=== PATIENT | female | born 1955 | race Caucasian/White ===

== ENCOUNTER → 2016-11-19 | Outpatient (CLI) | payer OTHER ==
[~2016-11-19] MED LIST: ESTR1.5T4 PO
== END | disposition home or self-care (01) ==
LOC: STAR 08:21
PROVIDERS: ATTEND Orthopaedic Surgery
DX: Z01.818 Encounter for other preprocedural examination (principal); S83.242A Other tear of medial meniscus, current injury, left knee, initial encounter; M19.041 Primary osteoarthritis, right hand; M17.12 Unilateral primary osteoarthritis, left knee; X58.XXXA Exposure to other specified factors, initial encounter; Y93.89 Activity, other specified; Y92.89 Other specified places as the place of occurrence of the external cause; Y99.2 Volunteer activity
CPT/HCPCS: 93005

== ENCOUNTER 2016-11-26 05:11 | Day surgery (SDC) | payer OTHER ==
[2016-11-19 08:41] VITALS: BP 133/92
[~2016-11-26] VITALS: Ht 165.1 cm; Wt 61.0 kg
[2016-11-26] MEDS ORDERED: LACTATED RINGERS 1,000 ML IV SCH (05:46)
[2016-11-26] MEDS ORDERED: LIDOCAINE 1%, 2ML SQ PRN (06:00)
[2016-11-26] MEDS ORDERED: LIDOCAINE 1%-EPI 1:100K, 50ML ONE (06:21)
[2016-11-26] MEDS ORDERED: ROPIvacaine/PF 0.5%, 30 ML ONE (06:21)
[2016-11-26] MEDS ORDERED: LIDOCAINE/PF 1%-EPI 1:200K, 30ML ONE (06:29)
[2016-11-26] MEDS ORDERED: MIDAZOLAM 1 MG/ML, 2ML ONE ×2 (06:41→10:33)
[2016-11-26] MEDS ORDERED: FENTANYL PF 250 MCG/5ML ONE ×2 (06:41→10:33)
[2016-11-26] MEDS ORDERED: KETAMINE 10 MG/ML, 20ML ONE (07:15)
[2016-11-26] MEDS ORDERED: FENTANYL PF 100 MCG/2ML IV PRN (07:30)
[2016-11-26] MEDS ORDERED: PROMETHAZINE 25 MG/ML, 1ML IV PRN (07:30)
[2016-11-26] MEDS ORDERED: ONDANSETRON 2MG/ML, 2ML IVPush PRN (07:30)
[2016-11-26] MEDS ORDERED: hydrALAzine 20 MG/ML, 1ML IV PRN (07:30)
[2016-11-26] MEDS ORDERED: HYDROmorphone 1 MG/ML, 1ML IV PRN (07:30)
[2016-11-26] MEDS ORDERED: HALOPERIDOL 5 MG/ML IV PRN (07:30)
[2016-11-26] MEDS ORDERED: OXYcodone 5 MG/5 ML ORAL.SOL UDC PO PRN (07:30)
[2016-11-26] MEDS ORDERED: ACETAMINOPHEN 325 MG TABLET PO PRN (07:30)
[2016-11-26] MEDS ORDERED: LABETALOL 5MG/ML, 20ML IV PRN (07:30)
[2016-11-26] MEDS ORDERED: MEPERIDINE/PF 25MG/0.5ML IVPush PRN (07:30)
[2016-11-26] MEDS ORDERED: CEFAZOLIN 1,000 MG ONE (15:28)
[2016-11-26] MEDS ORDERED: KETOROLAC 30 MG/1 ML ONE (15:28)
[2016-11-26] MEDS ORDERED: DEXAMETHASONE 4 MG/ML, 1ML ONE (15:28)
[2016-11-26] MEDS ORDERED: EPHEDRINE 50 MG/ML, 1ML ONE (15:28)
[2016-11-26] MEDS ORDERED: PROPOFOL 10 MG/ML, 20ML ONE (15:28)
[2016-11-26] MEDS ORDERED: ONDANSETRON 2MG/ML, 2ML ONE (15:28)
== END 2016-11-26 09:25 ==
LOC: OUT 05:11
PROVIDERS: ATTEND Orthopaedic Surgery
DX: S83.242A Other tear of medial meniscus, current injury, left knee, initial encounter (principal); S83.282A Other tear of lateral meniscus, current injury, left knee, initial encounter; X58.XXXA Exposure to other specified factors, initial encounter; Y93.9 Activity, unspecified; Y92.9 Unspecified place or not applicable; Y99.9 Unspecified external cause status; M65.862 Other synovitis and tenosynovitis, left lower leg
CPT/HCPCS: 29880; J0690; J1100; J1885; J2250; J2405; J2704; J2795; J3010; J3490; J7120

== ENCOUNTER → 2017-02-14 | Outpatient (CLI) | payer OTHER | END | disposition home or self-care (01) | LOC: CFH 11:42 | PROVIDERS: ATTEND Orthopaedic Surgery | DX: S83.242A Other tear of medial meniscus, current injury, left knee, initial encounter (principal); M71.22 Synovial cyst of popliteal space [Baker], left knee; X58.XXXA Exposure to other specified factors, initial encounter; Y93.89 Activity, other specified; Y92.89 Other specified places as the place of occurrence of the external cause; Y99.8 Other external cause status ==

== ENCOUNTER → 2017-02-18 | Outpatient (CLI) | payer OTHER | END | disposition home or self-care (01) | LOC: LAB 08:46 | PROVIDERS: ATTEND Internal Medicine | DX: E03.9 Hypothyroidism, unspecified (principal) | CPT/HCPCS: 36415; 84439; 84443; 86376 ==

== ENCOUNTER → 2017-02-21 | Outpatient (CLI) | payer OTHER | END | disposition home or self-care (01) | LOC: RAD 15:20 | PROVIDERS: ATTEND Orthopaedic Surgery | DX: M17.12 Unilateral primary osteoarthritis, left knee (principal); M71.22 Synovial cyst of popliteal space [Baker], left knee; M25.462 Effusion, left knee ==

== ENCOUNTER → 2017-06-17 | Outpatient (CLI) | payer OTHER ==
[2017-06-17 08:25] LABS: HEMATOCRIT 44.3 % (34.6-47.8); HEMOGLOBIN 15.1 g/dL (11.7-16.4); WHITE BLOOD COUNT 4.4 x10^3/uL (3.4-10)
[2017-06-17 08:37] LABS: BLOOD UREA NITROGEN 18 mg/dL (7-18)
[2017-06-17 08:47] LABS: ASPARTATE AMINO TRANSFERASE 17 U/L (15-37)
== END ==
LOC: LAB 08:07
PROVIDERS: ATTEND Family Medicine
DX: Z00.01 Encounter for general adult medical examination with abnormal findings (principal); E78.5 Hyperlipidemia, unspecified; E89.41 Symptomatic postprocedural ovarian failure
CPT/HCPCS: 36415; 80053; 80061; 82306; 84436; 84443; 84480; 84481; 85025

== ENCOUNTER → 2017-09-04 | Outpatient (CLI) | payer OTHER | END | disposition home or self-care (01) | LOC: CFH 07:44 | PROVIDERS: ATTEND Family Medicine | DX: Z12.31 Encounter for screening mammogram for malignant neoplasm of breast (principal); Z80.3 Family history of malignant neoplasm of breast; Z79.890 Hormone replacement therapy | CPT/HCPCS: 77063; 77067 ==

== ENCOUNTER → 2017-10-01 | Outpatient (CLI) | payer OTHER | LOC: CFH 06:39 | PROVIDERS: ATTEND Orthopaedic Surgery | DX: S82.142D Displaced bicondylar fracture of left tibia, subsequent encounter for closed fracture with routine healing (principal); M17.12 Unilateral primary osteoarthritis, left knee; M25.462 Effusion, left knee; M22.42 Chondromalacia patellae, left knee; X58.XXXD Exposure to other specified factors, subsequent encounter ==

== ENCOUNTER → 2017-10-21 | Outpatient (CLI) | payer OTHER | END | disposition home or self-care (01) | LOC: CFH 08:01 | PROVIDERS: ATTEND Family Medicine | DX: Z13.820 Encounter for screening for osteoporosis (principal); M85.88 Other specified disorders of bone density and structure, other site | CPT/HCPCS: 77080 ==

== ENCOUNTER → 2017-11-17 | Outpatient (CLI) | payer OTHER ==
[~2017-11-17] MED LIST changes: +CALC1TAB PO; +MV,1TABL3 PO; +estrogen PO
[2017-11-17 10:54] LABS: BASOPHILS # (AUTO) 0.07 x10^3/uL (0-0.1); BASOPHILS % (AUTO) 2 % (0-1); EOSINOPHILS # (AUTO) 0.13 x10^3/uL (0-0.4); EOSINOPHILS % (AUTO) 3 % (1-7); LYMPHOCYTES # (AUTO) 1.74 x10^3/uL (1-3.4); LYMPHOCYTES % (AUTO) 35 % (22-44); MD NO; MEAN CORPUSCULAR HEMOGLOBIN 31.3 pg (27.0-34.8); MEAN CORPUSCULAR HGB CONC 34.2 g/dL (32.4-35.8); MEAN CORPUSCULAR VOLUME 91.6 fL (80-100); MEAN PLATELET VOLUME 8.4 fL (7.4-10.4); MONOCYTES # (AUTO) 0.47 x10^3/uL (0.2-0.8); MONOCYTES % (AUTO) 9 % (2-9); NEUTROPHILS # (AUTO) 2.62 x10^3/uL (1.8-6.8); NEUTROPHILS % (AUTO) 52 % (42-75); PLATELET COUNT 284 x10^3/uL (130-400); RED BLOOD COUNT 4.84 x10^6/uL (3.82-5.3); RED CELL DISTRIBUTION WIDTH 14.4 % (9.6-15.2)
[2017-11-17 11:02] LABS: ANION GAP 4 mmol/L (5-15); CALCIUM 9.7 mg/dL (8.5-10.1); CHLORIDE 107 mmol/L (98-107); CREATININE 0.97 mg/dL (0.55-1.02)
[2017-11-17 11:06] LABS: MICROSCOPIC NOT IND
[2017-11-17 11:08] LABS: CULTURE INDICATED? NO
== END | disposition home or self-care (01) ==
LOC: STAR 09:20
PROVIDERS: ATTEND Orthopaedic Surgery Adult Reconstructive Orthopaedic Surgery
DX: Z01.818 Encounter for other preprocedural examination (principal); I21.9 Acute myocardial infarction, unspecified; M17.12 Unilateral primary osteoarthritis, left knee
CPT/HCPCS: 36415; 80048; 81003; 85025; 87081; 87147; 87806; 93005; G0475

== ENCOUNTER 2017-12-15 05:31 | Observation (INO) | payer OTHER ==
[~2017-12-15] VITALS: Ht 165.1 cm; Wt 62.0 kg
[2017-12-15] MEDS ORDERED: VANCOMYCIN PER PHARMACY MC ONE (06:11)
[2017-12-15] MEDS ORDERED: ACETAMINOPHEN 500 MG TABLET PO ONE (06:30)
[2017-12-15] MEDS ORDERED: VANCOMYCIN 1,200 MG in SODIUM CHLORIDE 0.9% 250 ML IV ONE (06:30)
[2017-12-15] MEDS ORDERED: GABAPENTIN 300 MG CAPSULE PO ONE (06:30)
[2017-12-15] MEDS ORDERED: KETOROLAC 60 MG/2 ML ONE (06:31)
[2017-12-15] MEDS ORDERED: TRANEXAMIC ACID 100 MG/ML, 10ML ONE ×2 (06:31)
[2017-12-15] MEDS ORDERED: ROPIvacaine/PF 0.2%, 20 ML ONE (06:31)
[2017-12-15] MEDS ORDERED: EPINEPHRINE 1 MG/ML, 1ML ONE (06:31)
[2017-12-15] MEDS: LACTATED RINGERS 1,000 ML IV SCH ×3 (06:36→10:46)
[2017-12-15] MEDS ORDERED: BUPIVACAINE LIPOSOME/PF INFIL ONE (06:37)
[2017-12-15] MEDS ORDERED: MIDAZOLAM 1 MG/ML, 2ML ONE (06:42)
[2017-12-15] MEDS ORDERED: PHENYLEPHRINE 10 MG/ML ONE (06:42)
[2017-12-15] MEDS ORDERED: FENTANYL PF 250 MCG/5ML ONE (06:42)
[2017-12-15] MEDS ORDERED: OxyconTIN ER 10 MG TAB.ER ONE (06:45)
[2017-12-15] MEDS ORDERED: OxyconTIN ER 10 MG TAB.ER PO ONE (07:00)
[2017-12-15] MEDS ORDERED: PROPOFOL 50 ML ONE (07:09)
[2017-12-15] MEDS ORDERED: OXYcodone 5 MG/5 ML ORAL.SOL UDC PO PRN (07:30)
[2017-12-15] MEDS ORDERED: PROMETHAZINE 25 MG SUPP PR PRN (07:30)
[2017-12-15] MEDS ORDERED: MEPERIDINE/PF 25MG/0.5ML IVPush PRN (07:30)
[2017-12-15] MEDS ORDERED: LABETALOL 5MG/ML, 20ML IV PRN (07:30)
[2017-12-15] MEDS ORDERED: PROMETHAZINE 12.5 MG SUPP PR PRN (07:30)
[2017-12-15] MEDS ORDERED: MORPHINE SULFATE 4 MG/ML, 1ML IVPush PRN (07:30)
[2017-12-15] MEDS ORDERED: ONDANSETRON ODT 8 MG PO PRN (07:30)
[2017-12-15] MEDS ORDERED: PROMETHAZINE 25 MG/ML, 1ML IV PRN (07:30)
[2017-12-15] MEDS ORDERED: OXYcodone IR 5MG TABLET PO PRN (08:30)
[2017-12-15] MEDS ORDERED: ACETAMINOPHEN 650 MG/20.3 ML UDC PO PRN (08:30)
[2017-12-15] MEDS ORDERED: ALUMINUM/MAG/SIMETHICONE 30 ML UDC PO PRN (08:30)
[2017-12-15] MEDS ORDERED: SENNA/DOCUSATE TABLET PO PRN (08:30)
[2017-12-15] MEDS ORDERED: MAGNESIUM HYDROXIDE 8%, 30ML UDC PO PRN (08:30)
[2017-12-15] MEDS ORDERED: DIPHENHYDRAMINE 50 MG CAPSULE PO PRN (08:30)
[2017-12-15] MEDS ORDERED: DIAZEPAM 5 MG TABLET PO PRN (08:30)
[2017-12-15] MEDS ORDERED: ONDANSETRON 4 MG TABLET PO PRN (08:30)
[2017-12-15] MEDS ORDERED: HYDROcodone/APAP 5/325 TABLET PO PRN (08:30)
[2017-12-15] MEDS ORDERED: morphine SULFATE 10 MG/ML, 1ML IV PRN (08:30)
[2017-12-15] MEDS ORDERED: BISACODYL 10 MG SUPP PR PRN (08:30)
[2017-12-15] MEDS ORDERED: OXYcodone 5 MG/5 ML ORAL.SOL UDC ONE (08:47)
[2017-12-15] MEDS ORDERED: FENTANYL PF 100 MCG/2ML ONE (08:47)
[2017-12-15] MEDS: FENTANYL PF 100 MCG/2ML IV PRN ×4 (08:49→09:24)
[2017-12-15] MEDS ORDERED: LABETALOL 5MG/ML, 20ML ONE (08:55)
[2017-12-15] MEDS: DOCUSATE 100 MG CAPSULE PO SCH (09:00)
[2017-12-15] MEDS: ESTROGEN HOMEMEDPO SCH (09:00)
[2017-12-15] MEDS ORDERED: hydrALAzine 20 MG/ML, 1ML ONE (09:10)
[2017-12-15] MEDS ORDERED: TRANEXAMIC ACID 1,000 MG in SODIUM CHLORIDE 0.9% 100 ML IV ONE (09:30)
[2017-12-15] MEDS ORDERED: hydrALAzine 20 MG/ML, 1ML IV PRN (09:30)
[2017-12-15 10:15] VITALS: BP 145/86
[2017-12-15] MEDS ORDERED: D5%-0.45NACL+KCL 20MEQ 1,000 ML IV SCH (11:00)
[2017-12-15] MEDS ORDERED: ASPI-621 PO (11:33)
[2017-12-15] MEDS ORDERED: OXYC5CAP2 PO (11:33)
[2017-12-15] MEDS ORDERED: CEFAZOLIN PMX 1GM/50ML 50 ML IVPB SCH (13:00)
[2017-12-15 13:07] VITALS: BP 109/70
[2017-12-16] MEDS ORDERED: ASPIRIN 81 MG TABLET EC PO SCH (06:00)
[2017-12-16] MEDS ORDERED: KETOROLAC 30 MG/1 ML IV SCH (08:30)
[2017-12-16] MEDS ORDERED: MULTIVITAMINS/MINERALS TABLET PO SCH (09:00)
[2017-12-16] MEDS ORDERED: CALCIUM/VITAMIN D3 250-125 TABLET PO SCH (09:00)
== END 2017-12-15 17:53 | disposition home or self-care (01) ==
LOC: OUT 05:31 → EDSTATUS 07:00 → ORIP 08:21 → 4NOR 10:14
PROVIDERS: ADMIT Orthopaedic Surgery Adult Reconstructive Orthopaedic Surgery; ATTEND Orthopaedic Surgery Adult Reconstructive Orthopaedic Surgery
DX: M17.12 Unilateral primary osteoarthritis, left knee (principal)
CPT/HCPCS: 27437; 96365; 97162; C1713; C1776; C9290; G0378; G8978; G8979; G8980; J0171; J0360; J0690; J1885; J2250; J2370; J2704; J2795; J3010; J3370; J7050; J7120; Q0162

== ENCOUNTER → 2018-02-17 | Outpatient (CLI) | payer OTHER ==
[~2018-02-17] MED LIST changes: +ASPI-621 PO; +OXYC5CAP2 PO
== END | disposition home or self-care (01) ==
LOC: CFH 09:18
PROVIDERS: ATTEND Nurse Practitioner
DX: M71.21 Synovial cyst of popliteal space [Baker], right knee (principal); M79.89 Other specified soft tissue disorders

== ENCOUNTER → 2018-04-02 | Outpatient (CLI) | payer OTHER | END | disposition home or self-care (01) | LOC: RAD 11:10 | PROVIDERS: ATTEND Physician Assistant Surgical | DX: S83.241A Other tear of medial meniscus, current injury, right knee, initial encounter (principal); M17.11 Unilateral primary osteoarthritis, right knee; M67.461 Ganglion, right knee; X58.XXXA Exposure to other specified factors, initial encounter; Y93.89 Activity, other specified; Y92.89 Other specified places as the place of occurrence of the external cause; Y99.8 Other external cause status ==

== ENCOUNTER → 2018-06-11 | Outpatient (CLI) | payer OTHER | END | disposition home or self-care (01) | LOC: LAB 11:04 | PROVIDERS: ATTEND Family Medicine | DX: Z12.11 Encounter for screening for malignant neoplasm of colon (principal) | CPT/HCPCS: 82274 ==

== ENCOUNTER 2018-12-21 07:27 | Emergency (ER) | payer OTHER ==
[~2018-12-21] VITALS: Ht 165.1 cm; Wt 65.0 kg
[~2018-12-21 07:27] MED LIST changes: -ASPI-621 PO; +ASPI81TA45 PO
--- NOTE | 2018-12-21 07:36 | NUR ---
63 Y/O FEMALE BIB AMBULANCE WITH C/O N/V/. PER PT "I GOT VERY VERY DIAPHORETIC ABOUT 0600. I HAD SOME SEVERE PAIN IN THE BACK OF MY NECK AND HEAD. I FELT LIKE I WAS GOING TO PASS OUT. I THREW UP RIGHT BEFORE THE MEDICS WERE THERE. IT WAS YELLOW." NO C/O DIARRHEA, CP, SOB. BEDSIDE. PT PLACED ON CONT PULSE OX,NIBP, [facility] [employer] MAGISTRATE.
--- NOTE | 2018-12-21 07:50 | NUR ---
PT DENIES NAM AT THIS TIME. PIV ESTABLISHED REPORT PROGRAMMER.
--- NOTE | 2018-12-21 07:51 | NUR ---
[facility] ADMINISTERED PRIOR TO ARRIVAL. FSBS 132. PER PT "I WENT TO ON FRIDAY FOR A TOOTH ABSCESS. THEY STARTED ME ON AUGMENTIN."
[2018-12-21] MEDS ORDERED: METOCLOPRAMIDE 5 MG/ML, 2ML IVPush ONE (08:00)
[2018-12-21] MEDS ORDERED: SODIUM CHLORIDE FLUSH 10ML SYR IVF ONE (08:00)
[2018-12-21] MEDS ORDERED: METOCLOPRAMIDE 5 MG/ML, 2ML ONE (08:03)
[2018-12-21] MEDS ORDERED: MECLIZINE CHEWABLE 25 MG TAB ONE (08:21)
[2018-12-21] MEDS ORDERED: MECLIZINE CHEWABLE 25 MG TAB PO ONE (08:30)
[2018-12-21 08:31] LABS: BASOPHILS # (AUTO) 0.05 x10^3/uL (0-0.1); BASOPHILS % (AUTO) 1 % (0-1); EOSINOPHILS # (AUTO) 0.08 x10^3/uL (0-0.4); EOSINOPHILS % (AUTO) 1 % (1-7); LYMPHOCYTES # (AUTO) 1.13 x10^3/uL (1-3.4); LYMPHOCYTES % (AUTO) 15 % (22-44); MD NO; MEAN CORPUSCULAR HEMOGLOBIN 30.9 pg (27.0-34.8); MEAN CORPUSCULAR HGB CONC 33.3 g/dL (32.4-35.8); MEAN CORPUSCULAR VOLUME 92.6 fL (80-100); MEAN PLATELET VOLUME 7.9 fL (7.4-10.4); MONOCYTES # (AUTO) 0.31 x10^3/uL (0.2-0.8); MONOCYTES % (AUTO) 4 % (2-9); NEUTROPHILS # (AUTO) 5.98 x10^3/uL (1.8-6.8); NEUTROPHILS % (AUTO) 79 % (42-75); PLATELET COUNT 237 x10^3/uL (130-400); RED CELL DISTRIBUTION WIDTH 14.4 % (9.6-15.2)
[2018-12-21 08:32] LABS: ALBUMIN 4.1 g/dL (3.4-5.0); ANION GAP 9 mmol/L (5-15); CHLORIDE 107 mmol/L (98-107); CREATININE 0.95 mg/dL (0.55-1.02)
[2018-12-21 08:36] LABS: TROPONIN I < 0.015 ng/mL (0.000-0.045)
--- NOTE | 2018-12-21 08:50 | NUR ---
LATE ENTRY FOR 0840: PT AMBULATORY WITH STEADY GAIT TO BATHROOM. THIS RN NEXT TO PT DURING AMBULATION TO AND FROM ROOM. NO ACUTE DISTRESS NOTED.
--- NOTE | 2018-12-21 08:51 | NUR ---
PT BACK FROM IMAGING.
--- NOTE | 2018-12-21 08:53 | NUR ---
pt reattached to all monitors. pt denies any falls or trauma. pt a&ox4. no needs requested at this time. pt states "THE MEDICATION HELPED MY NAUSEA. I JUST FEEL A LITTLE NAUSEA. NOW MY HEAD HURTS JUST A LITTLE BIT. NOT BAD IT DID EARLIER BEFORE I CAME IN."
[2018-12-21] MEDS ORDERED: MORPHINE SULFATE 4 MG/ML, 1ML ONE (09:15)
--- NOTE | 2018-12-21 09:21 | NUR ---
PIV ESTABLISHED. PT TOLERATED WITH NO COMPLICATIONS.
[2018-12-21] MEDS ORDERED: ONDANSETRON 2MG/ML, 2ML ONE (09:25)
--- NOTE | 2018-12-21 09:29 | NUR ---
pt to imaging
[2018-12-21] MEDS ORDERED: morphine SULFATE 10 MG/ML, 1ML IVPush ONE (09:30)
[2018-12-21] MEDS ORDERED: ONDANSETRON 2MG/ML, 2ML IVPush ONE (09:30)
--- NOTE | 2018-12-21 09:42 | NUR ---
pt back from imaging.
--- NOTE | 2018-12-21 09:49 | NUR ---
lab called. they will do a blood redraw
--- NOTE | 2018-12-21 09:57 | NUR ---
PT RESTING ON GURNEY. NO ACUTE DISTRESS NOTED. . PT AND AWARE OF POC. NO NEEDS REQUESTED AT THIS TIME.
--- NOTE | 2018-12-21 10:04 | NUR ---
REPORT CALLED TO JAQUI PETERS AT [facility].
[2018-12-21 10:22] LABS: INTERNATIONAL NORMALIZED RATIO 0.95 (0.93-1.1)
[2018-12-21 10:24] VITALS: BP 137/77
--- NOTE | 2018-12-21 10:29 | NUR ---
BEDSIDE REPORT TO JAQUI FAUST.
[2018-12-21] MEDS ORDERED: OMNIPAQUE 350 MG/ML, 100ML BOTTLE ONE (10:30)
--- NOTE | 2018-12-21 10:40 | NUR ---
LATE ENTRY FOR 1020: NICARDIPINE STARTED. BP 153/80. 1024: BP 137//77. /
--- NOTE | 2018-12-21 10:41 | NUR ---
PT TRANSFERRED TO [facility] VIA EMS. PT A&O 4 AT TIME OF TRANSFER. PT LEFT WITH ALL PERSONAL BELONGINGS.
== END 2018-12-21 10:46 | disposition short-term general hospital (02) ==
LOC: ED 09:45
DX: I60.12 Nontraumatic subarachnoid hemorrhage from left middle cerebral artery (principal); R51 Headache
CPT/HCPCS: 36415; 70450; 70496; 71045; 80048; 82040; 83880; 84484; 85025; 85610; 85730; 93005; 96365; 96375; 99291; J2270; J2405; J2765; J7050; Q9967

== ENCOUNTER → 2019-01-16 | Outpatient (CLI) | payer OTHER ==
[2019-01-16 08:56] LABS: ALANINE AMINOTRANSFERASE 45 U/L (12-78); ALBUMIN 4.2 g/dL (3.4-5.0); ANION GAP 7 mmol/L (5-15); BILIRUBIN, DIRECT 0.1 mg/dL (0.1-0.2); CALCIUM 9.4 mg/dL (8.5-10.1); CHLORIDE 108 mmol/L (98-107)
[2019-01-16 08:58] LABS: ALKALINE PHOSPHATASE 135 U/L (45-117); BILIRUBIN,INDIRECT 0.4 mg/dL (0.0-2.0); BILIRUBIN,TOTAL 0.5 mg/dL (0.2-1.0); TOTAL PROTEIN 7.8 g/dL (6.4-8.2)
== END | disposition home or self-care (01) ==
LOC: LAB 08:17
PROVIDERS: ATTEND Family Medicine
DX: E87.1 Hypo-osmolality and hyponatremia (principal); R74.8 Abnormal levels of other serum enzymes; R74.0 Nonspecific elevation of levels of transaminase and lactic acid dehydrogenase [LDH]
CPT/HCPCS: 36415; 80048; 80076

== ENCOUNTER 2019-02-18 08:03 | Outpatient (CLI) | payer OTHER ==
[2019-02-18 08:22] LABS: BASOPHILS # (AUTO) 0.03 x10^3/uL (0-0.1); BASOPHILS % (AUTO) 1 % (0-1); EOSINOPHILS # (AUTO) 0.09 x10^3/uL (0-0.4); EOSINOPHILS % (AUTO) 2 % (1-7); LYMPHOCYTES # (AUTO) 1.38 x10^3/uL (1-3.4); LYMPHOCYTES % (AUTO) 31 % (22-44); MD NO; MEAN CORPUSCULAR HEMOGLOBIN 30.9 pg (27.0-34.8); MEAN CORPUSCULAR HGB CONC 33.2 g/dL (32.4-35.8); MEAN CORPUSCULAR VOLUME 93.1 fL (80-100); MEAN PLATELET VOLUME 7.7 fL (7.4-10.4); MONOCYTES # (AUTO) 0.44 x10^3/uL (0.2-0.8); MONOCYTES % (AUTO) 10 % (2-9); NEUTROPHILS # (AUTO) 2.51 x10^3/uL (1.8-6.8); NEUTROPHILS % (AUTO) 57 % (42-75); PLATELET COUNT 316 x10^3/uL (130-400)
[2019-02-18 08:32] LABS: ANION GAP 6 mmol/L (5-15); CALCIUM 9.1 mg/dL (8.5-10.1); CHLORIDE 110 mmol/L (98-107)
[2019-02-18 08:42] LABS: ALANINE AMINOTRANSFERASE 20 U/L (12-78); ALKALINE PHOSPHATASE 117 U/L (45-117); BILIRUBIN,TOTAL 0.4 mg/dL (0.2-1.0); CHOL/HDL RATIO 3.2; CHOLESTEROL, TOTAL 229 mg/dL (140-239); CREATININE 0.95 mg/dL (0.55-1.02); HDL CHOL % 31 % (28-40); HDL CHOLESTEROL (DIRECT) 71 mg/dL (40-60); LDL CHOLESTEROL,CALCULATED 126 mg/dL (54-169); LDL/HDL RATIO 1.8 (0.5-3.0); TOTAL PROTEIN 7.5 g/dL (6.4-8.2); TRIGLYCERIDES 161 mg/dL (50-200); VLDL CHOLESTEROL 32 mg/dL (0-25)
== END 2019-02-18 23:59 | disposition home or self-care (01) ==
LOC: LAB 08:03
PROVIDERS: ATTEND Family Medicine
DX: E03.9 Hypothyroidism, unspecified (principal); I60.8 Other nontraumatic subarachnoid hemorrhage; R53.83 Other fatigue
CPT/HCPCS: 36415; 80053; 80061; 82306; 84436; 84443; 84480; 84481; 85025

== ENCOUNTER → 2019-09-28 | Outpatient (CLI) | payer OTHER ==
[~2019-09-28] MED LIST changes: +OMNIPAQUE 350 MG/ML, 100ML BOTTLE ONE
== END | disposition home or self-care (01) ==
LOC: CFH 14:45
PROVIDERS: ATTEND Nurse Practitioner Family
DX: I67.1 Cerebral aneurysm, nonruptured (principal); I60.8 Other nontraumatic subarachnoid hemorrhage
CPT/HCPCS: 70496; 82565; Q9967

== ENCOUNTER → 2020-03-17 | Outpatient (CLI) | payer OTHER ==
[~2020-03-17] MED LIST changes: -OMNIPAQUE 350 MG/ML, 100ML BOTTLE ONE
[2020-03-17 07:36] LABS: BASOPHILS # (AUTO) 0.04 x10^3/uL (0-0.1); BASOPHILS % (AUTO) 1 % (0-1); EOSINOPHILS # (AUTO) 0.08 x10^3/uL (0-0.4); EOSINOPHILS % (AUTO) 2 % (1-7); LYMPHOCYTES # (AUTO) 1.33 x10^3/uL (1-3.4); LYMPHOCYTES % (AUTO) 26 % (22-44); MD NO; MEAN CORPUSCULAR HEMOGLOBIN 30.4 pg (27.0-34.8); MEAN CORPUSCULAR HGB CONC 32.8 g/dL (32.4-35.8); MEAN CORPUSCULAR VOLUME 92.7 fL (80-100); MEAN PLATELET VOLUME 7.8 fL (7.4-10.4); MONOCYTES # (AUTO) 0.42 x10^3/uL (0.2-0.8); MONOCYTES % (AUTO) 8 % (2-9); NEUTROPHILS # (AUTO) 3.27 x10^3/uL (1.8-6.8); NEUTROPHILS % (AUTO) 64 % (42-75); PLATELET COUNT 257 x10^3/uL (130-400); RED BLOOD COUNT 4.82 x10^6/uL (3.82-5.3); RED CELL DISTRIBUTION WIDTH 14.5 % (9.6-15.2)
[2020-03-17 07:47] LABS: ALBUMIN 4.3 g/dL (3.4-5.0); ANION GAP 4 mmol/L (5-15); CALCIUM 9.4 mg/dL (8.5-10.1); CHLORIDE 109 mmol/L (98-107)
[2020-03-17 07:56] LABS: ALANINE AMINOTRANSFERASE 19 U/L (12-78); ALKALINE PHOSPHATASE 79 U/L (45-117); BILIRUBIN,TOTAL 0.5 mg/dL (0.2-1.0); CHOL/HDL RATIO 3.2; CHOLESTEROL, TOTAL 239 mg/dL (140-239); CREATININE 1.06 mg/dL (0.55-1.02); HDL CHOL % 31 % (28-40); HDL CHOLESTEROL (DIRECT) 74 mg/dL (40-60); LDL CHOLESTEROL,CALCULATED 138 mg/dL (54-169); LDL/HDL RATIO 1.9 (0.5-3.0); T4 (THYROXINE) 8.3 mcg/dL (4.8-13.9); TOTAL PROTEIN 7.6 g/dL (6.4-8.2); TRIGLYCERIDES 134 mg/dL (50-200); VLDL CHOLESTEROL 27 mg/dL (0-25)
== END | disposition home or self-care (01) ==
LOC: LAB 07:19
PROVIDERS: ATTEND Family Medicine
DX: Z00.01 Encounter for general adult medical examination with abnormal findings (principal); E03.9 Hypothyroidism, unspecified
CPT/HCPCS: 36415; 80053; 80061; 82306; 84436; 84443; 84480; 84481; 85025; 86376; 86800

== ENCOUNTER 2020-03-27 13:59 | Outpatient (CLI) | payer OTHER | END 2020-03-27 23:59 | disposition home or self-care (01) | LOC: CFH 13:59 | PROVIDERS: ATTEND Family Medicine | DX: Z12.31 Encounter for screening mammogram for malignant neoplasm of breast (principal) | CPT/HCPCS: 77063; 77067 ==

== ENCOUNTER → 2020-07-20 | Outpatient (CLI) | payer OTHER ==
[2020-07-20 14:32] LABS: T4 (THYROXINE) 7.6 mcg/dL (4.8-13.9)
== END | disposition home or self-care (01) ==
LOC: LAB 13:48
PROVIDERS: ATTEND Family Medicine
DX: E03.9 Hypothyroidism, unspecified (principal)
CPT/HCPCS: 36415; 84436; 84443; 84480; 84481; 86376; 86800

== ENCOUNTER → 2020-12-12 | Outpatient (CLI) | payer OTHER ==
[~2020-12-12] MED LIST changes: +OMNIPAQUE 350 MG/ML, 100ML BOTTLE ONE
== END | disposition home or self-care (01) ==
LOC: CFH 12:38
PROVIDERS: ATTEND Family Medicine
DX: I60.8 Other nontraumatic subarachnoid hemorrhage (principal); I67.1 Cerebral aneurysm, nonruptured
CPT/HCPCS: 70496; 82565; Q9967

== ENCOUNTER → 2021-03-06 | Outpatient (CLI) | payer OTHER ==
[~2021-03-06] MED LIST changes: -OMNIPAQUE 350 MG/ML, 100ML BOTTLE ONE
[2021-03-06 08:18] LABS: BASOPHILS % (AUTO) 1 % (0-1); EOSINOPHILS % (AUTO) 1 % (1-7); LYMPHOCYTES % (AUTO) 29 % (22-44); MEAN CORPUSCULAR HEMOGLOBIN 31.2 pg (27.0-34.8); MEAN PLATELET VOLUME 7.8 fL (7.4-10.4); MONOCYTES % (AUTO) 11 % (2-9); NEUTROPHILS % (AUTO) 58 % (42-75); PLATELET COUNT 259 x10^3/uL (130-400); RED BLOOD COUNT 4.54 x10^6/uL (3.82-5.3); RED CELL DISTRIBUTION WIDTH 13.6 % (9.6-15.2)
[2021-03-06 08:29] LABS: ALBUMIN 3.8 g/dL (3.4-5.0); ANION GAP 4 mmol/L (5-15); CALCIUM 8.8 mg/dL (8.5-10.1); CHLORIDE 108 mmol/L (98-107)
[2021-03-06 08:30] LABS: MICROSCOPIC INDICATED
[2021-03-06 08:41] LABS: ALANINE AMINOTRANSFERASE 22 U/L (12-78); ALKALINE PHOSPHATASE 83 U/L (45-117); BILIRUBIN,TOTAL 0.4 mg/dL (0.2-1.0); CHOL/HDL RATIO 3.3; CHOLESTEROL, TOTAL 234 mg/dL (140-239); CREATININE 0.86 mg/dL (0.55-1.02); HDL CHOL % 30 % (28-40); HDL CHOLESTEROL (DIRECT) 70 mg/dL (40-60); LDL CHOLESTEROL,CALCULATED 141 mg/dL (54-169); TOTAL PROTEIN 7.4 g/dL (6.4-8.2); TRIGLYCERIDES 116 mg/dL (50-200); VLDL CHOLESTEROL 23 mg/dL (0-25)
[2021-03-06 09:02] LABS: FREE T4 (FREE THYROXINE) 1.09 ng/dL (0.76-1.46)
== END | disposition home or self-care (01) ==
LOC: LAB 07:52
PROVIDERS: ATTEND Family Medicine
DX: Z01.89 Encounter for other specified special examinations (principal); E03.9 Hypothyroidism, unspecified; I67.1 Cerebral aneurysm, nonruptured; F32.9 Major depressive disorder, single episode, unspecified
CPT/HCPCS: 36415; 80053; 80061; 81001; 83036; 84439; 84443; 85025; 86803

== ENCOUNTER 2021-03-30 07:08 | Outpatient (CLI) | payer OTHER | END 2021-03-30 23:59 | disposition home or self-care (01) | LOC: CFH 07:08 | PROVIDERS: ATTEND Family Medicine | DX: Z12.31 Encounter for screening mammogram for malignant neoplasm of breast (principal); N63.10 Unspecified lump in the right breast, unspecified quadrant; N63.20 Unspecified lump in the left breast, unspecified quadrant | CPT/HCPCS: 77063; 77067 ==